=== PATIENT | female | born 1995 | race Caucasian/White ===

== ENCOUNTER 2021-07-26 21:46 | Emergency (ER) | payer BC ==
[2021-07-26 22:08] VITALS: RESP 16; TEMP 98.4
--- NOTE | 2021-07-26 22:16 | ED ---
Nausea/Vomiting/Diarrhea HPI - General Chief complaint: Nausea/Vomiting/Diarrhea Stated complaint: Vomiting(16 weeks) Time Seen by Provider: 07/26/21 22:16 Source: patient, RN notes reviewed, old records reviewed Mode of arrival: ambulatory Limitations: no limitations - History of Present Illness Initial comments: This is a 25-year-old female to the emergency department today. Patient presents today for evaluation regards to significant persistent nausea vomiting. Patient is known about 16 weeks. She has had issues of vomiting of in the past but has been improving as of late. She states she's vomited 114 without significant abdominal pain or fever, no diarrhea no other complaints, no feelings of similar complaints. Patient denying recently eat and public and vomiting or any other issue. MD complaint: nausea, vomiting -: days(s) Description of Vomiting: watery Description of Diarrhea: water Associated Abdominal Pain: Yes Location: diffuse Radiation: none Severity: moderate Severity scale (1-10): 4 Quality: cramping Consistency: constant Improves with: eating Worsens with: none Associated Symptoms: myalgias, loss of appetite, nausea/vomiting, weakness - Related Data Allergies Allergy/AdvReac Type Severity Reaction Status Date / Time No Known Allergies Allergy Verified 07/27/21 01:40 Review of Systems ROS Statement: Those systems with pertinent positive or pertinent negative responses have been documented in the HPI. ROS Other: All systems not noted in ROS Statement are negative. Past Medical History Past Medical History: No Reported History History of Any Multi-Drug Resistant Organisms: None Reported Past Surgical History: No Surgical Hx Reported Smoking Status: Never smoker Past Alcohol Use History: None Reported Past Drug Use History: None Reported General Exam Limitations: no limitations General appearance: alert, in no apparent distress Head exam: Present: atraumatic, normocephalic, normal inspection Eye exam: Present: normal appearance, PERRL, EOMI. Absent: scleral icterus, conjunctival injection, periorbital swelling ENT exam: Present: normal exam, mucous membranes moist Neck exam: Present: normal inspection. Absent: tenderness, meningismus, lymphadenopathy Respiratory exam: Present: normal lung sounds bilaterally. Absent: respiratory distress, wheezes, rales, rhonchi, stridor Cardiovascular Exam: Present: normal rhythm, tachycardia, normal heart sounds. Absent: systolic murmur, diastolic murmur, rubs, gallop, clicks GI/Abdominal exam: Present: soft, normal bowel sounds. Absent: distended, tenderness, guarding, rebound, rigid Extremities exam: Present: normal inspection, full ROM, normal capillary refill. Absent: tenderness, pedal edema, joint swelling, calf tenderness Back exam: Present: normal inspection Neurological exam: Present: alert, oriented X3, CN II-XII intact Psychiatric exam: Present: normal affect, normal mood Skin exam: Present: warm, dry, intact, normal color. Absent: rash Course Vital Signs 07/26/21 07/26/21 22:05 23:35 Temperature 98.4 F Pulse Rate 115 H 63 Respiratory 16 16 Rate Blood Pressure 126/72 113/64 O2 Sat by Pulse 98 100 Oximetry - Reevaluation(s) Reevaluation #1: 07/26/21 23:10 Medical record is reviewed Reevaluation #2: 07/27/21 01:39 Patient symptoms are improved nausea and vomiting has been significantly improved Reevaluation #3: 07/27/21 01:40 Patient informed results and questions answered Medical Decision Making - Medical Decision Making 25 female persistent nausea and vomiting. Patient has nausea and vomiting resolved here in the ER feels improved and can be discharged home - Lab Data Result diagrams: 07/26/21 22:51 07/26/21 22:51 Lab Results 07/26/21 07/26/21 07/26/21 Range/Units 22:51 22:51 22:51 WBC 8.1 (3.8-10.6) k/uL RBC 4.16 (3.80-5.40) m/uL Hgb 12.9 (11.4-16.0) gm/dL Hct 37.9 (34.0-46.0) % MCV 91.2 (80.0-100.0) fL MCH 31.1 (25.0-35.0) pg MCHC 34.1 (31.0-37.0) g/dL RDW 12.3 (11.5-15.5) % Plt Count 364 (150-450) k/uL MPV 7.1 Neutrophils % 81 % Lymphocytes % 14 % Monocytes % 4 % Eosinophils % 0 % Basophils % 1 % Neutrophils # 6.5 (1.3-7.7) k/uL Lymphocytes # 1.1 (1.0-4.8) k/uL Monocytes # 0.3 (0-1.0) k/uL Eosinophils # 0.0 (0-0.7) k/uL Basophils # 0.0 (0-0.2) k/uL Sodium 134 L (137-145) mmol/L Potassium 3.8 (3.5-5.1) mmol/L Chloride 104 (98-107) mmol/L Carbon Dioxide 19 L (22-30) mmol/L Anion Gap 11 mmol/L BUN 7 (7-17) mg/dL Creatinine 0.45 L (0.52-1.04) mg/dL Est GFR (CKD-EPI)AfAm >90 (>60 ml/min/1.73 sqM) Est GFR (CKD-EPI)NonAf >90 (>60 ml/min/1.73 sqM) Glucose 92 (74-99) mg/dL Plasma Lactic Acid Antonio (0.7-2.0) mmol/L Calcium 9.6 (8.4-10.2) mg/dL Phosphorus 4.2 (2.5-4.5) mg/dL Magnesium 1.8 (1.6-2.3) mg/dL Total Bilirubin 0.6 (0.2-1.3) mg/dL AST 26 (14-36) U/L ALT 23 (4-34) U/L Alkaline Phosphatase 43 (38-126) U/L Total Protein 6.9 (6.3-8.2) g/dL Albumin 4.1 (3.5-5.0) g/dL Urine Color Yellow Urine Appearance Clear (Clear) Urine pH 5.5 (5.0-8.0) Ur Specific Calhoun 1.019 (1.001-1.035) Urine Protein Trace H (Negative) Urine Glucose (UA) Negative (Negative) Urine Ketones 4+ H (Negative) Urine Blood Negative (Negative) Urine Nitrite Negative (Negative) Urine Bilirubin Negative (Negative) Urine Urobilinogen <2.0 (<2.0) mg/dL Ur Leukocyte Esterase Negative (Negative) 07/26/21 Range/Units 22:51 WBC (3.8-10.6) k/uL RBC (3.80-5.40) m/uL Hgb (11.4-16.0) gm/dL Hct (34.0-46.0) % MCV (80.0-100.0) fL MCH (25.0-35.0) pg MCHC (31.0-37.0) g/dL RDW (11.5-15.5) % Plt Count (150-450) k/uL MPV Neutrophils % % Lymphocytes % % Monocytes % % Eosinophils % % Basophils % % Neutrophils # (1.3-7.7) k/uL Lymphocytes # (1.0-4.8) k/uL Monocytes # (0-1.0) k/uL Eosinophils # (0-0.7) k/uL Basophils # (0-0.2) k/uL Sodium (137-145) mmol/L Potassium (3.5-5.1) mmol/L Chloride (98-107) mmol/L Carbon Dioxide (22-30) mmol/L Anion Gap mmol/L BUN (7-17) mg/dL Creatinine (0.52-1.04) mg/dL Est GFR (CKD-EPI)AfAm (>60 ml/min/1.73 sqM) Est GFR (CKD-EPI)NonAf (>60 ml/min/1.73 sqM) Glucose (74-99) mg/dL Plasma Lactic Acid Antonio 1.0 (0.7-2.0) mmol/L Calcium (8.4-10.2) mg/dL Phosphorus (2.5-4.5) mg/dL Magnesium (1.6-2.3) mg/dL Total Bilirubin (0.2-1.3) mg/dL AST (14-36) U/L ALT (4-34) U/L Alkaline Phosphatase (38-126) U/L Total Protein (6.3-8.2) g/dL Albumin (3.5-5.0) g/dL Urine Color Urine Appearance (Clear) Urine pH (5.0-8.0) Ur Specific Calhoun (1.001-1.035) Urine Protein (Negative) Urine Glucose (UA) (Negative) Urine Ketones (Negative) Urine Blood (Negative) Urine Nitrite (Negative) Urine Bilirubin (Negative) Urine Urobilinogen (<2.0) mg/dL Ur Leukocyte Esterase (Negative) - Radiology Data Radiology results: report reviewed (Ultrasound is negative for any findings), image reviewed Disposition Clinical Impression: Dehydration, , Gastroenteritis Disposition: HOME SELF-CARE Condition: Fair Instructions (If sedation given, give patient instructions): Acute Nausea and Vomiting (ED) Is patient prescribed a controlled substance at d/c from ED?: No Referrals: Jenny Santa MD [Primary Care Provider] - 1-2 days
[2021-07-26] MEDS ORDERED: ACETAMINOPHEN IV (For NPO) 1,000 MG in EMPTY BAG 1 BAG IVPB STA (22:17)
[2021-07-26] MEDS ORDERED: PYRIDOXINE 100 MG/ML 1 ML VIAL IVP STA (22:17)
[2021-07-26] MEDS ORDERED: METOCLOPRAMIDE 5 MG/ML 2 ML VIAL IVP STA (22:17)
[2021-07-26] MEDS ORDERED: SODIUM CHLORIDE 0.9% 1,000 ML IV STA ×2 (22:17)
[2021-07-26] MEDS ORDERED: diphenhydrAMINE 50 MG/ML 1 ML VIAL IVP STA (22:17)
[2021-07-26] MEDS ORDERED: ONDANSETRON 4 MG/2 ML VIAL IVP STA (22:18)
[2021-07-26 23:24] LABS: Basophils % (A) 1 %; Eosinophils % (A) 0 %; HCT 37.9 % (34.0-46.0); HGB 12.9 gm/dL (11.4-16.0); Lymphocytes # (A) 1.1 k/uL (1.0-4.8); Lymphocytes % (A) 14 %; MCH 31.1 pg (25.0-35.0); MCHC 34.1 g/dL (31.0-37.0); MCV 91.2 fL (80.0-100.0); Mean Platelet Volume 7.1; Monocytes # (A) 0.3 k/uL (0-1.0); Monocytes % (A) 4 %; Neutrophils # (A) 6.5 k/uL (1.3-7.7); Neutrophils % (A) 81 %; Platelet Count 364 k/uL (150-450); RBC 4.16 m/uL (3.80-5.40); RDW 12.3 % (11.5-15.5); WBC 8.1 k/uL (3.8-10.6)
[2021-07-26 23:36] LABS: ALT 23 U/L (4-34); AST 26 U/L (14-36); African American GFR (CKD) >90 (>60 ml/min/1.73 sqM); Albumin 4.1 g/dL (3.5-5.0); Alkaline Phosphatase 43 U/L (38-126); Anion Gap 11 mmol/L; Blood Urea Nitrogen 7 mg/dL (7-17); Calcium 9.6 mg/dL (8.4-10.2); Carbon Dioxide 19 mmol/L (22-30); Chloride 104 mmol/L (98-107); Glucose 92 mg/dL (74-99); Magnesium 1.8 mg/dL (1.6-2.3); Non-African American GFR(CKD) >90 (>60 ml/min/1.73 sqM); Phosphorus 4.2 mg/dL (2.5-4.5); Potassium 3.8 mmol/L (3.5-5.1); Sodium 134 mmol/L (137-145); Total Bilirubin 0.6 mg/dL (0.2-1.3); Total Protein 6.9 g/dL (6.3-8.2)
[2021-07-27 00:07] VITALS: BP 113/64; PULSE 63
[2021-07-27] MEDS ORDERED: SODIUM CHLORIDE 0.9% 1,000 ML IV STA (00:33)
[2021-07-27 01:24] LABS: Appearance,Urine Clear (Clear); Bilirubin,Urine Negative (Negative); Blood,Urine Negative (Negative); Color,Urine Yellow; Glucose,Urine (UA) Negative (Negative); Ketones,Urine 4+ (Negative); Leukocyte Esterase,Urine Negative (Negative); Nitrite,Urine Negative (Negative); PH, Urine 5.5 (5.0-8.0); Protein,Urine Trace (Negative); Specific Gravity,Urine 1.019 (1.001-1.035); Urobilinogen,Urine <2.0 mg/dL (<2.0)
== END 2021-07-27 01:59 | disposition home or self-care (01) ==
LOC: EC 21:46
DX: O26.892 Other specified pregnancy related conditions, second trimester (principal); O99.282 Endocrine, nutritional and metabolic diseases complicating pregnancy, second trimester; K52.9 Noninfective gastroenteritis and colitis, unspecified; E86.0 Dehydration; Z3A.16 16 weeks gestation of pregnancy
CPT/HCPCS: 99284; 96374; 96375 ×3; 96361 ×3; 36415; 80053; 83605; 83735; 84100; 85025; 81003; J1200; J3415; J2765; J2405

== ENCOUNTER 2022-01-10 04:26 | Inpatient (IN) | payer BC ==
[2022-01-10] MEDS ORDERED: CARBOPROST TROMETHAMINE 250 MCG/ML 1 ML AMP IM PRN (04:51)
[2022-01-10] MEDS ORDERED: TERBUTALINE 1 MG/ML VIAL SQ PRN (04:51)
[2022-01-10] MEDS ORDERED: LIDOCAINE 1% (PF) 10 MG/ML (30 ML SDV) SQ PRN (04:51)
[2022-01-10] MEDS ORDERED: METHYLERGONOVINE 0.2 MG/ML 1 ML AMP IM PRN (04:51)
[2022-01-10] MEDS ORDERED: OXYTOCIN 10 UNIT/ML 1 ML VIAL IM PRN (04:51)
[2022-01-10] MEDS ORDERED: OXYTOCIN 30 UNITS/500 ML NS 30 UNIT in SALINE 1 500ML.BAG IV SCH (05:00)
[2022-01-10 05:55] LABS: Basophils % (A) 0 %; Eosinophils % (A) 0 %; HCT 36.7 % (34.0-46.0); HGB 12.3 gm/dL (11.4-16.0); Lymphocytes # (A) 1.9 k/uL (1.0-4.8); Lymphocytes % (A) 17 %; MCH 29.5 pg (25.0-35.0); MCHC 33.4 g/dL (31.0-37.0); MCV 88.3 fL (80.0-100.0); Mean Platelet Volume 7.3; Monocytes # (A) 0.5 k/uL (0-1.0); Monocytes % (A) 5 %; Neutrophils # (A) 8.5 k/uL (1.3-7.7); Neutrophils % (A) 76 %; Platelet Count 488 k/uL (150-450); RBC 4.16 m/uL (3.80-5.40); RDW 14.7 % (11.5-15.5); WBC 11.1 k/uL (3.8-10.6)
[2022-01-10] MEDS ORDERED: BUTORPHANOL 1 MG/ML 1 ML VIAL IV PRN (06:00)
[2022-01-10] MEDS: LACTATED RINGERS 1,000 ML IV SCH ×2 (07:18→09:34)
--- NOTE | 2022-01-10 10:54 | P.HPOB ---
History of Present Illness H&P Date: 01/10/22 Chief Complaint: My water broke at 3:00 this morning This is a 26-year-old 1 para 0 EDC 01/10/2022 at 40 weeks gestation who presented earlier this morning with her water breaking at home, clear fluid, at 0300 hrs. Mild irregular contractions to follow. Fetus is been active throughout the . Past medical history is unremarkable. Past surgical history is negative. ALLERGIES none known. Current medications vitamin daily, baby aspirin daily. Family history significant for cancer and dementia. Social history patient is , her is present and involved. She denies alcohol, tobacco, or any drug use. She is employed at a local retail store. history significant for blood type O+, rubella status immune. VDRL testing, urine culture, hepatitis B surface antigen, HIV testing, gonorrhea and chlamydia cultures all negative. One-hour Glucola 137, group B strep cultures negative. On exam patient is 5 foot 0 inches, 170 pounds, blood pressure 133/87 on admission. Vital signs are stable and she is afebrile. General exam is within normal limits. Cervix is 2 cm dilated, 60% effaced, -2 station, vertex presentation with positive amnio sure testing on admission. heart rate is consistent with reactive NST. Impression: 40 week intrauterine , spontaneous amniorrhexis, very early labor. All signs reassuring. Plan: Patient will be admitted, oxytocin augmentation as needed. Analgesic options reviewed. Anticipate normal spontaneous vaginal delivery. Review of Systems Constitutional: Reports as per HPI Past Medical History Past Medical History: No Reported History History of Any Multi-Drug Resistant Organisms: None Reported Past Surgical History: No Surgical Hx Reported Past Anesthesia/Blood Transfusion Reactions: No Reported Reaction Past Psychological History: No Psychological Hx Reported Smoking Status: Never smoker Past Alcohol Use History: None Reported Past Drug Use History: None Reported - Past Family History Mother History Unknown: Yes Family Medical History: No Reported History Father History Unknown: Yes Family Medical History: Cancer Medications and Allergies Home Medications Medication Instructions Recorded Confirmed Type Aspirin [Adult Low Dose Aspirin EC] 81 mg PO DAILY 01/10/22 01/10/22 History Pnv No.95/Ferrous Fum/Folic AC 1 tab PO DAILY 01/10/22 01/10/22 History [ Multivitamin Tablet] Allergies Allergy/AdvReac Type Severity Reaction Status Date / Time No Known Allergies Allergy Verified 01/10/22 04:35 Exam Vital Signs Temp Pulse Resp BP Pulse Ox 01/10/22 07:26 98.3 F 90 18 01/10/22 04:35 98.3 F 120 H 18 133/87 98 Intake and Output 01/09/22 01/10/22 01/10/22 22:59 06:59 14:59 Other: # Voids 1 Weight 77.111 kg 77.111 kg See dictation under HPI please Results Result Diagrams: 01/10/22 05:30 Abnormal Lab Results - Last 24 Hours (Table) 01/10/22 Range/Units 05:30 WBC 11.1 H (3.8-10.6) k/uL Plt Count 488 H (150-450) k/uL Neutrophils # 8.5 H (1.3-7.7) k/uL Assessment and Plan Assessment: 40 week intrauterine , spontaneous amniorrhexis at home, early spontaneous labor. All signs reassuring. Plan: Continue close maternal and surveillance. Oxytocin augmentation as needed. Analgesic options reviewed. Anticipate normal spontaneous vaginal delivery. Time with Patient: Less than 30
[2022-01-10] MEDS ORDERED: LANOLIN CREAM 5 GM TUBE TOPICAL PRN (10:57)
[2022-01-10] MEDS ORDERED: SIMETHICONE 80 MG CHEWABLE PO PRN (10:57)
[2022-01-10] MEDS ORDERED: diphenhydrAMINE 50 MG/ML 1 ML VIAL IVP PRN ×2 (10:57)
[2022-01-10] MEDS ORDERED: BENZOCAINE/MENTHOL SPRAY 1 GM/SPRAY AEROSOL TOPICAL PRN (10:57)
[2022-01-10] MEDS ORDERED: diphenhydrAMINE 50 MG CAP PO PRN (10:57)
[2022-01-10] MEDS ORDERED: ZOLPIDEM 5 MG TAB PO PRN (10:57)
[2022-01-10] MEDS ORDERED: HYDROCORTISONE 2.5% RECTAL CREAM 30 GM TUBE RECTAL PRN (10:57)
[2022-01-10] MEDS ORDERED: diphenhydrAMINE 25 MG CAP PO PRN (10:57)
--- NOTE | 2022-01-10 10:57 | P.PROBDLV ---
Vaginal Delivery Note - . Vaginal Delivery Note: This is a 21-year-old white female 1 para 0 EDC 01/10/2022 at 40 weeks gestation who presented earlier this morning from home with spontaneous amniorrhexis, clear fluid. Rare mild uterine contractions to follow. unremarkable, blood type O positive, rubella status immune, group B strep cultures negative. Please see dictated history and physical for details. Oxytocin was started and approximate 5:40 AM. Stadol was given per her request 1. Patient progressed well through the first stage of labor and became completely dilated at 1006 hours. Second stage of labor was then started. With excellent maternal expulsive efforts the 's head came down to the perineal body. Perineum is prepped and draped in usual sterile fashion. With controlled efforts the infant's head delivered occiput anterior and restituted accordingly. There was no nuchal cord noted. The right or anterior shoulder was delivered from underneath the pubic symphysis at which time the oropharynx, nasopharynx, and external nares were all bulb suctioned. Patient was officially delivered of a liveborn female infant at 1032 hours. The umbilical cord was doubly clamped and ligated, she was handed to waiting nurses for evaluation where scores of 9 and 9 at one and 5 minutes respectively were given. Placenta delivered spontaneously after collection of cord blood. Placenta is inspected, intact, trivascular cord. Uterus is then massaged. Careful inspec tion of cervix, vagina, perineum, periurethral, perirectal areas revealed a partial third-degree laceration. This was repaired in the usual fashion, and deep stitch was placed in the rectal sphincter for reinforcement. Repeat suture was used for final closure. Rectal exam reveals good tone, no foreign bodies or stitch material in the rectal mucosa. All sponge needle and enhancement counts are correct. Total estimated blood loss 250 mL's. Patient and her are allowed to begin the bonding experience in the LDR. weighs 2915 g or 6 lbs. 7 oz.
[2022-01-10] MEDS ORDERED: ACETAMINOPHEN TAB 500 MG TAB PO PRN (13:18)
[2022-01-10] MEDS: IBUPROFEN 600 MG TAB PO PRN ×2 (13:27→19:52)
[2022-01-10] MEDS: SENNOSIDES-DOCUSATE SODIUM 1 EACH TAB PO SCH (19:52)
[2022-01-11] MEDS: LACTATED RINGERS 1,000 ML IV SCH (02:28)
[2022-01-11] MEDS: IBUPROFEN 600 MG TAB PO PRN ×2 (04:31→10:20)
[2022-01-11] MEDS: SENNOSIDES-DOCUSATE SODIUM 1 EACH TAB PO SCH (08:05)
[2022-01-11 08:13] LABS: Basophils # (A) 0.1 k/uL (0-0.2); Basophils % (A) 0 %; Eosinophils # (A) 0.1 k/uL (0-0.7); Eosinophils % (A) 0 %; HCT 29.9 % (34.0-46.0); Lymphocytes # (A) 2.3 k/uL (1.0-4.8); Lymphocytes % (A) 17 %; MCH 28.5 pg (25.0-35.0); MCHC 31.9 g/dL (31.0-37.0); MCV 89.4 fL (80.0-100.0); Monocytes # (A) 0.8 k/uL (0-1.0); Monocytes % (A) 6 %; Neutrophils # (A) 10.1 k/uL (1.3-7.7); Neutrophils % (A) 75 %; Platelet Count 383 k/uL (150-450); RBC 3.34 m/uL (3.80-5.40); RDW 14.5 % (11.5-15.5); WBC 13.5 k/uL (3.8-10.6)
[2022-01-11 08:14] LABS: HGB 9.5 gm/dL (11.4-16.0)
[2022-01-11 08:49] VITALS: BP 108/68; PULSE 94; RESP 16; TEMP 98.1
--- NOTE | 2022-01-11 10:26 | P.DS ---
Providers Date of admission: 01/10/22 04:35 Expected date of discharge: 01/11/22 Attending physician: Ivet Calderón Primary care physician: Stated None Hospital Course: This is a 26-year-old white female 1 para 0 EDC 01/10/2022 at 40 weeks gestation who presented with spontaneous amniorrhexis, clear fluid, at home. remarkable for negative group B strep cultures, rubella status immune, blood type O positive. Please see my dictated history and physical for details. Patient was admitted, oxytocin augmentation was started and titrated per hospital protocol. Epidural was declined. Patient went on to deliver vaginally a liveborn female infant with scores of 9 and 9 at one and 5 minutes respectively. weighed 2915 g or 6 lbs. 7 oz. There was a partial third- degree laceration encountered, easily repaired with good reapproximation. Estimated blood loss 250 mL's. Please see dictated or note for details. This morning the patient and her infant are both doing well. Patient is voiding, ambulating, passing flatus without difficulty. Vital signs are stable and she is afebrile. Fundus is firm and in the midline, symmetric and 18 week size. Extremities are negative for edema. Patient is judged to be in very good condition for discharge home. Her pain is minimal. She will use [id number] Advil or Aleve, or Motrin as needed for pain. She will call with any fevers shakes or chills, foul smelling or copious lochia, with the passage of large blood clots, with any pain not alleviated by [id number] products, or indeed with any concerns. She is reminded to keep bowel movements soft and regular, no suppositories, no animals, nothing per rectum. Assessment: Doing well day #1 Patient Condition at Discharge: Good Plan - Discharge Summary Discharge Rx Participant: No New Discharge Prescriptions: No Action Aspirin [Adult Low Dose Aspirin EC] 81 mg PO DAILY Pnv No.95/Ferrous Fum/Folic AC [ Multivitamin Tablet] 1 tab PO DAILY Discharge Medication List Aspirin [Adult Low Dose Aspirin EC] 81 mg PO DAILY 01/10/22 [History] Pnv No.95/Ferrous Fum/Folic AC [ Multivitamin Tablet] 1 tab PO DAILY 01/10/22 [History] Follow up Appointment(s)/Referral(s): Ivet Calderón MD [STAFF PHYSICIAN] - 6 Weeks Discharge Disposition: HOME SELF-CARE
--- NOTE | 2022-01-11 10:41 | P.MSEPDOC ---
Presenting Problems - Arrival Data Date of Arrival on Unit: 01/10/22 Time of Arrival on Unit: 04:00 Mode of Transport: Wheelchair - Complaint OB-Reason for Admission/Chief Complaint: Rule Out SROM Comment: SROM at 0300, clear fluid Medical History - Information : 1 Para: 0 Term: 0 : 0 Abortions: Spontaneous or Elective: 0 Number of Living Children: 0 - Gestational Age Gestational Age by MAYTE (wks/days): 40 Weeks and 0 Days Review of Systems - Review of Systems Constitutional: No problems Breast: No problems ENT: No problems Cardiovascular: No problems Respiratory: No problems Gastrointestinal: No problems Genitourinary: No problems Musculoskeletal: No problems Neurological: No problems Skin: No problems Vital Signs - Temperature Temperature: 98.1 F Temperature Source: Oral - Pulse Right Pulse Rate: 94 Pulse Assessment Method: Pulse Oximetry - Respirations Respiratory Rate: 16 Oxygen Delivery Method: Room Air Oxygen Flow Rate: 0 O2 Sat by Pulse Oximetry: 97 - Blood Pressure Right Arm Blood Pressure: 108/68 Blood Pressure Mean: 81 Blood Pressure Source: Automatic Cuff Medical Screen Scoring - Cervical Exam Dilation (cm): 2 Effacement (%): 80 Station: -2 Membranes: Ruptured - Uterine Contractions Frequency From (mins): 1 Frequency To (mins): 4 Duration From (seconds): 60 Duration To (seconds): 80 Intensity: Mild Resting: Soft to palpation - Assessment - Baby A Baseline FHR: 125 Heart Rate - NICHD Category: Category I (Normal) Physician Notification - Physician Notified Physician Notified Date: 01/10/22 Physician Notified Time: 04:49 Physician: Abbi Nicholas New Order Received: Yes - Notification Comment Comment: RN reported to Dr. Nicholas regarding pt's c/o SROM at 0300 today, amnisure. positive, Cxns 1.5-4min apart, mild to palpation & soft at rest, category 1 FHTs, GBS. negative. Pt dilated 2cm/80%/-2. RN to admit pt for labor, start pitocin at 0600. If pt. is requesting pain medication, she may have an epidural if she is making cervical. change. If no cervical change, pt may have stadol 1mg Q2H. Maternal Triage Index - Maternal Triage Index Presenting for scheduled procedure w/no complaint: No - Stat/Priority 1 Stat Priority 1: No - Urgent/Priority 2 Urgent Priority 2: No - Prompt/Priority 3 Prompt Priority 3: No - Non-Urgent/Priority 4 Non-Urgent Priority 4: Yes Criteria Met for Priority 4: SROM at 0300, clear fluid. Coping with labor. No complications with . Disposition - Disposition OB Disposition: Admit I agree with the RN Medical Screening Exam: Yes Case reviewed; plan agreed upon as documented in EMR&OBIX.: Yes Diagnosis: LOUSE-BORNE TYPHUS
== END 2022-01-11 12:49 | disposition home or self-care (01) | DRG 768 ==
LOC: FBPOP 04:26 → 4FBP 04:35
PROVIDERS: ADMIT Obstetrics & Gynecology Obstetrics; ATTEND Obstetrics & Gynecology
PROC: 10E0XZZ Delivery of Products of Conception, External Approach (ICD-10-PCS; principal; 2022-01-10)
PROC: 0DQR0ZZ Repair Anal Sphincter, Open Approach (ICD-10-PCS; principal; 2022-01-10)
DX: O70.20 Third degree perineal laceration during delivery, unspecified (principal); Z37.0 Single live birth; Z3A.40 40 weeks gestation of pregnancy; Z79.82 Long term (current) use of aspirin; Z80.52 Family history of malignant neoplasm of bladder; Z82.0 Family history of epilepsy and other diseases of the nervous system
CPT/HCPCS: 59025; 84112; 85025; 86850; 86900; 86901; 99213

== ENCOUNTER → 2023-07-01 | Outpatient (CLI) | payer OTHER ==
--- NOTE | 2023-07-02 07:56 | US ---
EXAMINATION TYPE: US OB >= 14 wk fetus DATE OF EXAM: 07/01/2023 COMPARISON: None CLINICAL INDICATION: Female, 27 years old with history of Z36.89 ENCOUNTER FOR OTHER SPECIFIED ANTENA TOLU SCR; TECHNIQUE: Transabdominal (TA) GESTATIONAL AGE / DATING Physician Established: (14 weeks/4 days) EDC: 12/26/2023 Dates by LMP: (14 weeks/4 days) EDC: 12/26/2023 Dates by First Scan: No previous this is first scan Dates by Current Scan: (14 weeks/4 days) EDC: 12/26/2023 SURVEY IUP: Single PLACENTA: Posterior PREVIA: No Previa ROBERTH: 10.0 cm Normal CERVICAL LENGTH (transabdominal: norm > 3.0cm): 3.5 cm BIOMETRY PRESENTATION: Vertex LIE: Longitudinal BPD: 2.5 cm 14 weeks / 3 days HC: 9.7 cm 14 weeks / 3 days AC: 7.6 cm 14 weeks / 0 days FL: 1.4 cm 14 weeks / 0 days ESTIMATED WEIGHT IN GRAMS: 89.6 grams ESTIMATED WEIGHT IN LBS/OZ: 0 lbs. 3 oz. WEIGHT PERCENTAGE BASED ON ESTABLISHED DATES: 11% HC/AC: 1.28 Normal FL/AC: 17.98 HEART RATE: 154 bpm RHYTHM: Normal IMPRESSION: 1. Single intrauterine gestation estimated at 14 weeks 4 days gestation based on the current ultrasou nd measurements. This would have a calculated EDC of 12/26/2023. Correlate this with her physician adonis mesa EDC of 324. 2. Cardiac activity measures 154 bpm.
== END | disposition home or self-care (01) ==
LOC: RADUSWWP 15:39
PROVIDERS: ATTEND Obstetrics & Gynecology
DX: Z36.89 Encounter for other specified antenatal screening (principal); Z3A.14 14 weeks gestation of pregnancy
CPT/HCPCS: 76805

== ENCOUNTER → 2023-08-13 | Outpatient (CLI) | payer OTHER ==
--- NOTE | 2023-08-13 18:09 | US ---
EXAMINATION TYPE: US OB anatomy transabd DATE OF EXAM: 08/13/2023 COMPARISON: OB ultrasound 07/01/2023 CLINICAL INDICATION: Female, 27 years old with history of O36.62X0 LARGE FOR DATES; TECHNIQUE: Transabdominal (TA) EXAM MEASUREMENTS: GESTATIONAL AGE / DATING Physician Established: (20 weeks/5 days) EDC: 12/26/2023 Dates by Current Scan for: (20 weeks/ 3 days) EDC: 12/28/2023 SURVEY IUP: Y PLACENTA: POSTERIOR PREVIA: NO ROBERTH: 12.93 cm Normal CERVICAL LENGTH (transabdominal: norm > 3.0cm): cm BIOMETRY PRESENTATION: CEPHALIC LIE: LLD BPD: 4.70 cm 20 weeks / 2 days HC: 17.53 cm 20 weeks / 1 days AC: 14.88 cm 20 weeks / 1 days FL: 3.40 cm 20 weeks / 5 days ESTIMATED WEIGHT IN GRAMS: 348 grams ESTIMATED WEIGHT IN LBS/OZ: 0 lbs. 12 oz. WEIGHT PERCENTAGE BASED ON ESTABLISHED DATE: 27 % HC/AC: 1.18 Normal FL/AC: 23% Normal HEART RATE: 146 bpm RHYTHM: NORMAL ANATOMY SEEN (within normal limits): * Lateral Vent (< 1 cm) 0.76 cm * Cisterna Magna (< 1.1 cm) 0.27 cm * Nuchal Fold (< 0.6 cm) 0.54 cm * Cerebellum (varies with age) 2.23 cm Choroid Plexus (bilateral) Midline Falx Cavus Septi Pellucidi Four Chamber Heart Outflow tracts: LVOT/RVOT Stomach Situs Nose / Lips Diaphragm Kidneys (bilateral) Bladder Cord Insert Three Vessel Cord Longitudinal Spine Transverse Spine Arms (bilateral) Legs (bilateral) IMPRESSION: Unremarkable anatomy exam.
== END | disposition home or self-care (01) ==
LOC: RADUSWWP 14:54
PROVIDERS: ATTEND Obstetrics & Gynecology
DX: O36.62X0 Maternal care for excessive fetal growth, second trimester, not applicable or unspecified (principal); Z3A.21 21 weeks gestation of pregnancy
CPT/HCPCS: 76811

== ENCOUNTER → 2023-11-25 | Outpatient (CLI) | payer OTHER ==
--- NOTE | 2023-11-25 12:57 | US ---
EXAMINATION TYPE: US OB >= 14 wk fetus DATE OF EXAM: 11/25/2023 COMPARISON: US CLINICAL INDICATION: Female, 28 years old with history of O36.5930 MATERN CARE FOR OTH OR SUSP POOR F ETL GRT; SGA, size TECHNIQUE: Transabdominal (TA) GESTATIONAL AGE / DATING Physician Established: (35 weeks/4 days) EDC: 12/26/2023 Dates by LMP: (35 weeks/4 days) EDC: 12/26/2023 Dates by First Scan: (35 weeks/4 days) EDC: 12/26/2023 Dates by Current Scan: (35 weeks/0 days) EDC: 12/30/2023 SURVEY IUP: Single PLACENTA: Posterior & Fundal PREVIA: No Previa ROBERTH: 14.3 cm Normal CERVICAL LENGTH (transabdominal: norm > 3.0cm): 3.1 cm BIOMETRY PRESENTATION: Vertex BPD: 8.6 cm 34 weeks / 5 days HC: 30.7 cm 34 weeks / 2 days AC: 31.8 cm 35 weeks / 6 days FL: 6.8 cm 35 weeks / 0 days ESTIMATED WEIGHT IN GRAMS: 2629 grams ESTIMATED WEIGHT IN LBS/OZ: 5 lbs. 13 oz. WEIGHT PERCENTAGE BASED ON ESTABLISHED DATES: 40% HC/AC: 0.97 Normal FL/AC: 21 Normal HEART RATE: 136 bpm RHYTHM: Normal Single, viable IUP/ Growth above IMPRESSION: Single viable intrauterine .
== END | disposition home or self-care (01) ==
LOC: RADUSWWP 12:22
PROVIDERS: ATTEND Obstetrics & Gynecology
DX: O36.5930 Maternal care for other known or suspected poor fetal growth, third trimester, not applicable or unspecified (principal); Z3A.36 36 weeks gestation of pregnancy
CPT/HCPCS: 76805

== ENCOUNTER 2023-12-23 19:57 | Inpatient (IN) | payer OTHER ==
[2023-12-23] MEDS ORDERED: TERBUTALINE 1 MG/ML VIAL SQ PRN (20:18)
[2023-12-23] MEDS ORDERED: METHYLERGONOVINE 0.2 MG/ML 1 ML AMP IM PRN (20:18)
[2023-12-23] MEDS ORDERED: TRANEXAMIC 1,000 MG/100ML-NACL 1,000 MG in EMPTY BAG 1 BAG IV PRN (20:18)
[2023-12-23] MEDS ORDERED: miSOPROStoL 200 MCG TAB PO PRN (20:18)
[2023-12-23] MEDS ORDERED: CARBOPROST TROMETHAMINE 250 MCG/ML 1 ML AMP IM PRN (20:18)
[2023-12-23] MEDS: OXYTOCIN 10 UNIT/ML 1 ML VIAL IM PRN (20:28)
[2023-12-23] MEDS: LACTATED RINGERS 1,000 ML IV SCH (20:30)
[2023-12-23] MEDS: LIDOCAINE 0.5% (PF) 5 MG/ML (50 ML SDV) SQ PRN (20:40)
[2023-12-23] MEDS: OXYTOCIN 30 UNITS/500 ML NS 30 UNIT in SALINE 1 500ML.BAG IV SCH (20:47)
[2023-12-23 20:55] LABS: Basophils % (A) 0 %; Eosinophils % (A) 0 %; HCT 38.5 % (34.0-46.0); HGB 12.7 gm/dL (11.4-16.0); Lymphocytes # (A) 2.5 k/uL (1.0-4.8); Lymphocytes % (A) 19 %; MCH 27.5 pg (25.0-35.0); MCHC 32.9 g/dL (31.0-37.0); MCV 83.6 fL (80.0-100.0); Monocytes # (A) 0.6 k/uL (0-1.0); Monocytes % (A) 4 %; Neutrophils % (A) 75 %; Platelet Count 412 k/uL (150-450); RBC 4.61 m/uL (3.80-5.40); RDW 14.9 % (11.5-15.5); WBC 13.4 k/uL (3.8-10.6)
[2023-12-23] MEDS: ACETAMINOPHEN TAB 325 MG TAB PO PRN (21:57)
[2023-12-24] MEDS: IBUPROFEN 600 MG TAB PO PRN (02:39)
--- NOTE | 2023-12-24 07:40 | P.HPOB ---
History of Present Illness H&P Date: 12/24/23 Chief Complaint: labor 28 year old presents at 39 weeks 5 days in active labor. She is eufemia every 2 minutes and her cervix was dilated to 9-1/2 cm, 100% effaced, -1 station. heart tones category 1. Review of Systems All systems: negative Constitutional: Denies chills, Denies fever Eyes: denies blurred vision, denies pain Ears, nose, mouth and throat: Denies headache, Denies sore throat Cardiovascular: Denies chest pain, Denies shortness of breath Respiratory: Denies cough Gastrointestinal: Denies abdominal pain, Denies diarrhea, Denies nausea, Denies vomiting Genitourinary: Denies dysuria, Denies hematuria Musculoskeletal: Denies myalgias Integumentary: Denies pruritus, Denies rash Neurological: Denies numbness, Denies weakness Psychiatric: Denies anxiety, Denies depression Endocrine: Denies fatigue, Denies weight change Past Medical History Past Medical History: No Reported History History of Any Multi-Drug Resistant Organisms: None Reported Past Surgical History: No Surgical Hx Reported Past Anesthesia/Blood Transfusion Reactions: No Reported Reaction Past Psychological History: No Psychological Hx Reported Smoking Status: Never smoker Past Alcohol Use History: None Reported Past Drug Use History: None Reported - Past Family History Mother History Unknown: Yes Family Medical History: No Reported History Father History Unknown: Yes Family Medical History: Cancer Medications and Allergies Home Medications Medication Instructions Recorded Confirmed Type Aspirin [Adult Low Dose Aspirin EC] 81 mg PO DAILY 01/10/22 01/10/22 History Pnv No.95/Ferrous Fum/Folic AC 1 tab PO DAILY 01/10/22 01/10/22 History [ Multivitamin Tablet] Allergies Allergy/AdvReac Type Severity Reaction Status Date / Time No Known Allergies Allergy Verified 01/10/22 04:35 Exam Osteopathic Statement: *. No significant issues noted on an osteopathic structural exam other than those noted in the History and Physical/Consult. Vital Signs Temp Pulse Resp BP Pulse Ox 12/23/23 22:44 64 16 129/72 100 12/23/23 22:29 97.8 F 60 16 137/73 99 12/23/23 22:14 77 16 132/62 99 12/23/23 21:58 67 16 139/67 100 03/05/24 21:44 66 16 144/71 100 12/23/23 21:29 66 16 142/65 100 12/23/23 21:14 68 16 140/70 100 12/23/23 20:58 65 16 135/70 100 12/23/23 20:44 61 16 121/69 97 Intake and Output 12/23/23 12/24/23 12/24/23 22:59 06:59 14:59 Intake Total 162 Output Total 352 Balance -190 Intake: Intake, IV Titration 162 Amount Oxytocin 30 Units/500 ml 162 Ns 30 unit In Saline 1 500ml.bag @ Per Protocol IV .Q0M [facility] Rx#:[id number] Output: Estimated Blood Loss 150 Output, Quantitative 202 Blood Loss Other: # Voids 1 1 Weight 80.739 kg Heart: Regular rate and rhythm Lungs: Clear to auscultation bilaterally Abdomen: Soft, nontender Extremities: Negative Homans sign Results Result Diagrams: 12/23/23 20:35 Abnormal Lab Results - Last 24 Hours (Table) 12/23/23 Range/Units 20:35 WBC 13.4 H (3.8-10.6) k/uL Neutrophils # 10.0 H (1.3-7.7) k/uL Assessment and Plan (1) Active labor Current Visit: Yes Status: Acute Code(s): [id number] - SNOMED Code(s): 001125837 Plan: 1. Admit to family place 2. Expectant management 3. Anticipate normal vaginal delivery
--- NOTE | 2023-12-24 07:42 | P.PROBDLV ---
Vaginal Delivery Note - . Vaginal Delivery Note: 28 year old presents at 39 weeks 5 days in active labor. She is eufemia every 2 minutes and her cervix was dilated to 9-1/2 cm, 100% effaced, -1 station. heart tones category 1. I was called in from home and when I arrived the baby had just been delivered by nursing staff at 2024. Baby was vigorously crying in the warmer. Apgars 8, 9, weight 7 lbs. 8 oz. I delivered the placenta intact with three-vessel cord at 2028. Vagina, cervix, and perineum were inspected. First-degree midline laceration was repaired with 3-0 Vicryl. Estimated blood loss 150 mL. Mother and baby in stable condition.
--- NOTE | 2023-12-24 07:43 | P.PNOBGVD ---
Subjective - Subjective Principal diagnosis: S/P NVD PPD #1 Interval history: Patient seen and examined. Denies nausea, vomiting, chest pain, shortness of breath or calf pain. She is feeling well. Bleeding is decreasing and her cramping is tolerable. Patient reports: Reports appetite normal, Reports voiding normally, Reports pain well controlled, Reports ambulating normally Benedict: doing well Objective - Latest Vital Signs Latest vital signs: Vital Signs Temp Pulse Resp BP Pulse Ox 12/23/23 22:44 64 16 129/72 100 12/23/23 22:29 97.8 F 60 16 137/73 99 12/23/23 22:14 77 16 132/62 99 12/23/23 21:58 67 16 139/67 100 12/23/23 21:44 66 16 144/71 100 12/23/23 21:29 66 16 142/65 100 12/23/23 21:14 68 16 140/70 100 12/23/23 20:58 65 16 135/70 100 12/23/23 20:44 61 16 121/69 97 Intake and Output 12/23/23 12/24/23 12/24/23 22:59 06:59 14:59 Intake Total 162 Output Total 352 Balance -190 Intake: Intake, IV Titration 162 Amount Oxytocin 30 Units/500 ml 162 Ns 30 unit In Saline 1 500ml.bag @ Per Protocol IV .Q0M [facility] Rx#:[id number] Output: Estimated Blood Loss 150 Output, Quantitative 202 Blood Loss Other: # Voids 1 1 Weight 80.739 kg - Exam Lungs: bilateral: normal Chest: Normal S1, Normal S2 Extremities: Present: normal Abdomen: Present: normal appearance, soft Uterus: Present: normal, firm - Labs Labs: Abnormal Lab Results - Last 24 Hours (Table) 12/23/23 Range/Units 20:35 WBC 13.4 H (3.8-10.6) k/uL Neutrophils # 10.0 H (1.3-7.7) k/uL Assessment and Plan (1) Active labor Current Visit: Yes Status: Resolved Code(s): SWI5401 - SNOMED Code(s): 552985419 (2) Status post normal vaginal delivery Current Visit: Yes Status: Acute Code(s): EER2478 - SNOMED Code(s): 583829653 Plan: 1. cont pp care
[2023-12-24] MEDS: SENNOSIDES-DOCUSATE SODIUM 1 EACH TAB PO SCH (21:49)
--- NOTE | 2023-12-25 07:27 | P.DS ---
Providers Date of admission: 12/23/23 20:12 Expected date of discharge: 12/25/23 Attending physician: Mala Staley Primary care physician: Mala Staley - Discharge Diagnosis(es) (1) Active labor Current Visit: Yes Status: Resolved (2) Status post normal vaginal delivery Current Visit: Yes Status: Acute Hospital Course: Pt presneted in active labor. she underwent a normal vaginal delivery. PP course has been uncomplicated. Pt will be discharged home PPD #1 in stable condition to follow up with me in 6 weeks. Plan - Discharge Summary New Discharge Prescriptions: New Ibuprofen [Motrin] 600 mg PO Q6H PRN #30 tab PRN Reason: Pain Discontinued Aspirin [Adult Low Dose Aspirin EC] 81 mg PO DAILY No Action Pnv No.95/Ferrous Fum/Folic AC [ Multivitamin Tablet] 1 tab PO DAILY Discharge Medication List Pnv No.95/Ferrous Fum/Folic AC [ Multivitamin Tablet] 1 tab PO DAILY 01/10/22 [History] Ibuprofen [Motrin] 600 mg PO Q6H PRN #30 tab 12/25/23 [Rx] Discharge Disposition: HOME SELF-CARE
[2023-12-25 09:03] VITALS: BP 125/84; PULSE 82; RESP 16; TEMP 98
== END 2023-12-25 12:30 | disposition home or self-care (01) | DRG 807 ==
LOC: FBPOP 19:57 → 4FBP 20:12
PROVIDERS: ADMIT Obstetrics & Gynecology; ATTEND Obstetrics & Gynecology
PROC: 10E0XZZ Delivery of Products of Conception, External Approach (ICD-10-PCS; principal; 2023-12-23)
PROC: 0HQ9XZZ Repair Perineum Skin, External Approach (ICD-10-PCS; 2023-12-23)
DX: O70.0 First degree perineal laceration during delivery (principal); Z37.0 Single live birth; Z3A.39 39 weeks gestation of pregnancy; Z79.82 Long term (current) use of aspirin
CPT/HCPCS: 85025; 86850; 86900; 86901